=== PATIENT | female | born 1975 | race Caucasian/White ===

== ENCOUNTER 2016-12-10 10:24 | Emergency (ER) | payer SELFPAY ==
[~2016-12-10] VITALS: Ht 172.7 cm; Wt 102.1 kg
[2016-12-10 10:45] VITALS: BP 128/51
--- NOTE | 2016-12-10 10:45 | NUR ---
PT TO BED 4. URINE COLLECTED IN TRIAGE.
--- NOTE | 2016-12-10 11:00 | NUR ---
PATIENT PRESENTS TO ED WITH ABDOMINAL PAIN. PT STATES SHE'S HAD ABDOMINAL PAIN OVER THE LAST TWO DAYS, RIGHT LOWER QUADRANT, BOWEL PRESENT X4, PAIN IS FELT THROUGHOUT ABDOMEN, GRIMACING NOTED WHEN PALPATING RLQ . HISTORY OF HERNIA SURGERY 1.5 YEARS AGO. NKDA, DENIES N/V/D; SKIN IS PINK/WARM/DRY; AAOX4 WITH EVEN AND STEADY GAIT; PAIN INCREAESED UPON AMBULATION; LUNGS CLEAR BL; HR EVEN AND REGULAR; PT DENIES ANY FEVER, CP, SOB, OR COUGH AT THIS TIME; PATIENT STATES PAIN OF 5/10 AT THIS TIME; VSS; PATIENT POSITIONED FOR COMFORT; HOB ELEVATED; BEDRAILS UP X2; BED DOWN. ER MD MADE AWARE OF PT STATUS.
[2016-12-10] MEDS ORDERED: [UNRECOGNIZED DRUG - CODE] PO (11:03)
--- NOTE | 2016-12-10 11:05 | NUR ---
ER MD BEE AT BEDSIDE
[2016-12-10] MEDS ORDERED: NACL 0.9% 1,000 ML IV ONE (11:21)
[2016-12-10] MEDS ORDERED: KETOROLAC 30 MG/ML VIAL IVP ONE (11:25)
[2016-12-10] MEDS ORDERED: ONDANSETRON 4 MG/2 ML VIAL IVP ONE (11:25)
--- NOTE | 2016-12-10 11:30 | NUR ---
PT TRANSPORTED TO CT VIA W/C BY [employer].
--- NOTE | 2016-12-10 11:55 | NUR ---
20G IV TO LEFT AC, BLOOD DRAWN AND SENT, IV PATENT AND INTACT, PT TOLERATED WELL, IV MEDS GIVEN PER MAR
[2016-12-10 11:56] LABS: BASOPHILS # (AUTO) 0.1 K/uL (0.00-0.22); BASOPHILS % (AUTO) 1.6 % (0.0-2.0); EOSINOPHILS # (AUTO) 0.1 K/uL (0-0.4); EOSINOPHILS % (AUTO) 0.8 % (0.0-4.0); HEMOGLOBIN 12.1 g/dL (12.0-16.0); LYMPHOCYTES % (AUTO) 24.9 % (20.5-51.1); MEAN CORPUSCULAR HEMOGLOBIN 29 pg (27-31); MEAN CORPUSCULAR HGB CONC 33 g/dL (33-37); MEAN CORPUSCULAR VOLUME 90 fL (80-94); MONOCYTES # (AUTO) 0.4 K/uL (0.8-1.0); MONOCYTES % (AUTO) 5.1 % (1.7-9.3); NEUTROPHILS # (AUTO) 5.6 K/uL (1.8-7.7); NEUTROPHILS % (AUTO) 67.6 % (42.2-75.2); PLATELET COUNT (AUTO) 250 K/uL (140-450); RED BLOOD CELL COUNT(AUTO) 4.12 MIL/uL (4.20-5.40); RED CELL DISTRIBUTION WIDTH 14.9 % (11.6-13.7); WHITE BLOOD COUNT (AUTO) 8.2 K/uL (4.8-10.8)
--- NOTE | 2016-12-10 12:10 | NUR ---
NADR AT THIS TIME NOTED FROM PT FOR NACL ADMINISTERED AT THIS TIME.
[2016-12-10 12:18] LABS: ALBUMIN 3.7 g/dL (3.4-5.0); ANION GAP 11.5 (8-16); CALCIUM 8.7 mg/dL (8.5-10.1); CARBON DIOXIDE 27.1 mmol/L (21-32); CREATININE 0.7 mg/dL (0.6-1.3); POTASSIUM 3.6 mmol/L (3.5-5.1); TOTAL BILIRUBIN 0.8 mg/dL (0.0-1.0)
--- NOTE | 2016-12-10 12:30 | NUR ---
Patient appears to be resting comfortably in bed. Vital Signs within normal limits. Respirations even and unlabored. PAIN LEVEL 5/10, SIDE RAILS UP, BET AT LOWEST POSITION, WILL CONTINUE TO MONITOR
--- NOTE | 2016-12-10 12:40 | NUR ---
END TIME FOR NACL 0.9% AT THIS TIME; PT RECIEVED 1,000 ML OF NACL. IV FLUIDS NO LONGER INFUSING.
--- NOTE | 2016-12-10 13:20 | NUR ---
IV removed, catheter intact and site benign. Applied folded 4x4 gauze and tape to stop bleeding.
[2016-12-10 13:25] VITALS: BP 119/64
--- NOTE | 2016-12-10 13:25 | NUR ---
ORANGE TABLET GIVEN TO PATIENT
--- NOTE | 2016-12-10 13:25 | NUR ---
Patient discharged with v/s stable. Written and verbal after care instructions given and explained. Patient alert, oriented and verbalized understanding of instructions. Ambulatory with steady gait. All questions addressed prior to discharge. ID band removed. Patient advised to follow up with PMD. Rx of ZOFRAN ODT 4MG TAB AND TRAMADOL HYDROCHLORIDE 50MG TAB given. Patient educated on indication of medication including possible reaction and side effects. Opportunity to ask questions provided and answered.
== END 2016-12-10 13:25 | disposition home or self-care (01) ==
LOC: MED 10:24
DX: R10.84 Generalized abdominal pain (principal); R03.0 Elevated blood-pressure reading, without diagnosis of hypertension
CPT/HCPCS: 36415; 74176; 80053; 81025; 85025; 96361; 96374; 96375; 99285; J1885; J2405; J7030